=== PATIENT | male | born 1995 | race African-American/Black ===

== ENCOUNTER 2017-05-03 23:27 | Emergency (ER) | payer OTHER ==
[~2017-05-03] VITALS: Ht 177.8 cm; Wt 68.2 kg
[2017-05-04] MEDS ORDERED: LIDOCAINE W/EPINEPHRINE 1% 20ML VIAL SC ONE (00:45)
--- NOTE | 2017-05-04 02:10 | REPUSA ---
HISTORY: Trauma. COMPARISON: Not provided. TECHNIQUE: Multiple thin section helically-acquired axially-displayed and helically acquired coronall y displayed computed tomographic images of the face are obtained from the mandible through the fronta l sinuses, with images obtained at soft tissue and bone window. 2D reformatted images were performed. FINDINGS: Normal bony mineralization. No fractures. Normal orbits. Normal, clear paranasal sinuses. Normal oral and nasal cavities. Normal infratemporal fossa and deep parapharyngeal spaces with normal muscles of mastication. Normal parotid and submandibular glands. IMPRESSION: No acute traumatic pathology. Thank you for your kind referral of this patient
[2017-05-04 02:41] VITALS: BP 129/66
[2017-05-04] MEDS ORDERED: AMOX500C PO (02:58)
== END 2017-05-04 03:05 | disposition home or self-care (01) ==
LOC: M ED 23:47
DX: S01.512A Laceration without foreign body of oral cavity, initial encounter (principal); W50.0XXA Accidental hit or strike by another person, initial encounter; Y92.149 Unspecified place in prison as the place of occurrence of the external cause; Y93.9 Activity, unspecified; Y99.9 Unspecified external cause status